=== PATIENT | female | born 1985 | race African-American/Black ===

== ENCOUNTER 2017-01-17 10:37 | Emergency (ER) | payer OTHER ==
[~2017-01-17] VITALS: Ht 162.6 cm; Wt 86.0 kg
[2017-01-17 10:40] VITALS: Ht 162.6 cm; Wt 86.0 kg
--- NOTE | 2017-01-17 12:15 | ERD ---
ER Documentation Chief Complaint Date/Time DATE: 01/17/17 TIME: 12:12 Chief Complaint COUGH X 1 WEEK , STREAKS OF BLOOD IN SPUTUM HPI Patient is a 31-year-old female who presents to the emergency department with a cough 1 week. Patient states that her cough is dry in nature. Patient states this morning she noted some blood specks in her sputum. Patient states that she recently is fighting a possible flu. Her fevers have resolved. Patient also states that she lost her voice which is now resolved. Patient denies any rhinorrhea, sore throat, ear pain, chest pain, shortness of breath, nausea, vomiting, abdominal pain or loss consciousness. Patient denies receiving the flu vaccine this year. Patient denies any recent travel. No sick contacts. ROS All systems reviewed and are negative except as per history of present illness. Medications Home Meds Active Scripts Benzonatate* (Tessalon Perle*) 100 Mg Capsule, 100 MG PO Q8H Y for COUGH, #20 CAP Prov:LENCHO BRAR PA-C 01/17/17 Azithromycin* (Zithromax*) 250 Mg Tablet, 250 MG PO .ZPACK DIRECTED, #6 TAB TAKE 500 MG (2 TABS) THE FIRST DAY THEN 250 MG (1 TAB) DAYS 2-5 Prov:LENCHO BRAR PA-C 01/17/17 Ibuprofen* (Motrin*) 600 Mg Tab, 600 MG PO Q6, #30 TAB Prov:LENCHO BRAR PA-C 01/17/17 Allergies Allergies: Coded Allergies: No Known Allergy (Unverified , 01/08/14) PMhx/Soc History of Surgery: No Anesthesia Reaction: No Hx Neurological Disorder: No Hx Respiratory Disorders: No Hx Cardiac Disorders: No Hx Psychiatric Problems: No Hx Miscellaneous Medical Probl: No Hx Alcohol Use: No Hx Substance Use: No Hx Tobacco Use: No FmHx Family History: No diabetes Physical Exam Vitals Vital Signs Date Time Temp Pulse Resp B/P Pulse Ox O2 Delivery O2 Flow Rate FiO2 01/17/17 10:40 98.2 64 18 126/64 97 Physical Exam GENERAL: Well-developed, well-nourished female. Appears in no acute distress. Speaking in full sentences. No nasal flaring, no abdominal retractions noted. HEAD: Normocephalic, atraumatic. No deformities or ecchymosis. EYE: Pupils equal, round, and reactive to light. EOMs intact. No conjunctival erythema. No eye discharge. ENT: External ear without any masses or tenderness. Auditory canals clear bilaterally. TM visualized bilaterally, non-erythematous, non-bulging. Nasal mucosa pink with no discharge. Oropharynx is pink without any tonsillar erythema or exudates. No uvula deviation. No kissing tonsils. NECK: Supple. No meningismus. Normal ROM of the neck. LUNG: Clear to auscultation bilaterally. No rhonchi, wheezing, rales or coarse breath sounds. HEART: Regular rate and rhythm. No murmurs, rubs or gallops. BACK: No midline tenderness. EXTREMITIES: Equal pulses bilaterally. No peripheral clubbing, cyanosis or edema. No unilateral leg swelling. NEUROLOGIC: Alert and oriented to person, place and time. Moving all four extremities. 5/5 strength in all extremities. Normal speech. Steady gait. SKIN: Normal color. Warm and dry. No rashes or lesions. Procedures/MDM ED COURSE: The patient was stable throughout ED course. I kept the patient and/or family informed of laboratory and diagnostic imaging results throughout the ED course. DIAGNOSTIC IMAGING: Read by radiologist. DIAGNOSTIC IMAGING REPORT Patient: MALA LOPEZ : 1985 Age: 31 Sex: F MR #: [id number] DOS: 01/17/17 1151 Ordering MD: LENCHO BRAR PA-C Location: [facility] Room/Bed: PROCEDURE: Chest Radiograph. CLINICAL INDICATION: Cough. Fevers. TECHNIQUE: Single frontal chest radiograph. COMPARISON: None available FINDINGS: The cardiomediastinal silhouette is within normal limits. No infiltrate or effusion is seen. The bones are intact. IMPRESSION: 1. Unremarkable chest radiograph. RPTAT: KK .Edgar Mane MD, Date Time Electronically viewed and signed by .Edgar Mane MD, MD on 2016 13:27 .B/ CC: LENCHO BRAR PA-C . MEDICAL DECISION MAKING: This is a 31-year-old female presents with a cough 1 week. Patient reports flu like symptoms earlier in the week, however cough has persisted. Vital signs were reviewed. Patient was afebrile. Patient was not hypoxic. ENT exam was normal. Lung exam was normal. Given these findings, the patient's presentation is most consistent with viral URI versus acute bronchitis.. I have a much lower clinical concern for bacterial infections including pneumonia, meningitis, sinusitis, otitis externa, acute otitis media, strep pharyngitis, epiglottitis or peritonsillar abscess. PRESCRIPTIONS: Z-Juwan, ibuprofen, Tessalon Perles DISCHARGE: At this time, patient is stable for discharge and outpatient management. Advised to follow-up with her primary care physician for outpatient TB testing. Supportive therapies such as OTC throat lozenges, salt water gurgles, popsicles and jello discussed. I have instructed the patient to follow-up with his/her primary care physician in 1-2 days. I have instructed the patient to promptly return to the ER for any new or worsening symptoms including increased pain, swelling, fever, nausea, vomiting, weakness or difficulty breathing. The patient and/or family expressed understanding of and agreement with this plan. All questions were answered. Home care instructions were provided. Departure Diagnosis: Primary Impression: Bronchitis Condition: Stable Patient Instructions: Acute Bronchitis Additional Instructions: Call your primary care doctor TOMORROW for an appointment during the next 1-2 days.See the doctor sooner or return here if your condition worsens before your appointment time. Follow with your primary care physician for TB testing. LENCHO BRAR PA-C January 17, 2017 12:15
--- NOTE | 2017-01-17 13:27 | RADRPT ---
PROCEDURE: Chest Radiograph. CLINICAL INDICATION: Cough. Fevers. TECHNIQUE: Single frontal chest radiograph. COMPARISON: None available FINDINGS: The cardiomediastinal silhouette is within normal limits. No infiltrate or effusion is seen. Th e bones are intact. IMPRESSION: 1. Unremarkable chest radiograph. RPTAT: KK .Edgar Mane MD, MD Date Time Electronically viewed and signed by .Edgar Mane MD, on 01/17/2017 13:27 .B/
[2017-01-17] MEDS ORDERED: AZIT250T94 PO (13:37)
[2017-01-17] MEDS ORDERED: IBUP-1542 PO (13:37)
[2017-01-17] MEDS ORDERED: BENZ100C70 PO (13:38)
[2017-01-17 14:09] VITALS: BP 128/73; PULSE 68; RESP 17
== END 2017-01-17 14:15 | disposition home or self-care (01) ==
LOC: FTE 10:37
DX: J20.9 Acute bronchitis, unspecified (principal)
CPT/HCPCS: 71010; Z7502

== ENCOUNTER 2017-06-30 04:11 | Emergency (ER) | payer OTHER ==
[~2017-06-30] VITALS: Ht 162.6 cm; Wt 77.3 kg
[~2017-06-30 04:11] MED LIST: AZIT250T94 PO; BENZ100C70 PO; IBUP-1542 PO
[2017-06-30 04:15] VITALS: Ht 162.6 cm; Wt 77.3 kg
[2017-06-30] MEDS ORDERED: ACETAMINOPHEN 500 MG TAB PO STA (06:10)
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
[2017-06-30] MEDS ORDERED: IBUP-1542 PO (07:55)
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
[2017-06-30 08:19] VITALS: BP 125/65; PULSE 75; RESP 18; TEMP 98.4
== END 2017-06-30 08:19 | disposition home or self-care (01) ==
LOC: FTE 04:11
DX: S09.90XA Unspecified injury of head, initial encounter (principal); R42 Dizziness and giddiness; V49.40XA Driver injured in collision with unspecified motor vehicles in traffic accident, initial encounter
CPT/HCPCS: 70450; 72040; 72100; 73562; 93005; Z7502; Z7610